=== PATIENT | male | born 1985 | race Two or more races ===

== ENCOUNTER → 2021-10-22 | Emergency (ER) | payer BC ==
[~2021-10-22] VITALS: Ht 167.6 cm; Wt 105.0 kg
[2021-10-22 16:02] VITALS: BP 133/74
[2021-10-22 18:25] LABS: Urine Bacteria NONE SEEN /hpf (None Seen); Urine Blood TRACE /uL (Negative); Urine Mucus FEW (None Seen); Urine Specific Gravity 1.032 (1.001-1.035); Urine WBC 3 /hpf (0 - 3)
[2021-10-22 19:43] LABS: Basophils # (auto) 0.1 10 ^3/uL (0-0.2); Basophils % (auto) 0.8 % (0.0-2.0); Eosinophils # (auto) 0.1 10 ^3/uL (0-0.8); Eosinophils % (auto) 0.5 % (0.0-7.0); Hemoglobin 15.2 g/dL (13.5-17.5); Lymphocytes # (auto) 4.4 10 ^3/uL (0.4-5.4); Lymphocytes % (auto) 24.6 % (10.0-50.0); Mean Corpuscular Hemoglobin 28.6 pg (28.0-32.0); Mean Corpuscular Volume 86.6 fL (80.0-100.0); Monocytes # (auto) 1.1 10 ^3/uL (0-1.3); Monocytes % (auto) 6.4 % (0.0-12.0); Neutrophils # (auto) 12.2 10 ^3/uL (1.6-8.6); Neutrophils % (auto) 67.7 % (37.0-80.0); Red Blood Cells 5.31 10^6/uL (4.5-5.90)
[2021-10-22 20:00] LABS: Albumin 3.6 g/dL (3.4-5.0); Calcium 8.9 mg/dL (8.5-10.1)
[2021-10-22 20:02] LABS: BUN/Creatinine Ratio 11.4; Bilirubin, Total 0.4 mg/dL (0.2-1.0); Total Protein 8.2 g/dL (6.4-8.2)
== END | disposition left against medical advice (07) ==
LOC: ER 15:52
DX: R10.31 Right lower quadrant pain (principal); R11.0 Nausea; Z53.21 Procedure and treatment not carried out due to patient leaving prior to being seen by health care provider
CPT/HCPCS: 36415; 80053; 81001; 82150; 83690; 85025